=== PATIENT | female | born 1990 | race Hispanic/Latino ===

== ENCOUNTER 2018-10-22 19:48 | Emergency (ER) | payer OTHER ==
[2018-10-22] MEDS ORDERED: METHYLPREDNISOLONE SOD SUCC 125MG/2ML VIAL ONE (20:27)
== END 2018-10-22 21:32 | disposition home or self-care (01) ==
LOC: EDH 19:48
DX: L50.9 Urticaria, unspecified (principal)
CPT/HCPCS: 96372; 99283; J2930